=== PATIENT | female | born 1950 | race Caucasian/White ===

== ENCOUNTER → 2016-05-18 | Day surgery (SDC) | payer MEDICARE, MEDICAID ==
[2016-05-10 12:13] VITALS: BMI 29.9
[~2016-05-18] MED LIST: BSS 500 ml-Vancomycin 10 mg-Phenylephrine 1 mg Irrigation IR ONE; CHONDROITIN SULFATE 0.5 ML/PFS INTRAOC ONE; DEXAMETHASONE 4 MG/ML VIAL IV PRN; DIAZEPAM 5 MG TAB PO PRN; FENTANYL 100 MCG/2 ML VIAL IV PRN; FENTANYL 100 MCG/2 ML VIAL ONE; HYDROCODONE 5 MG/ACETAMIN 325 MG TAB PO PRN; Hyaluronate Sodium (Provisc) 5.5 mg/0.55 ml syringe INTRAOC ONE; KETOROLAC TROMETH 30 MG/ML VIAL IV PRN; LABETALOL 20 MG/4 ML SYRINGE IV PRN; LR 1,000 ML IV ONE; LR 1,000 ML IV SCH; MIDAZOLAM 2 MG/2 ML VIAL ONE; NS 1,000 ML IV SCH; NS 250 ML IV SCH; ONDANSETRON HCL 4 MG/2 ML VIAL IV PRN; PHENYLEPHRINE 2.5% OPHTH SOLN 2 ML BOT OP EYE ONE; SCOPOLAMINE TRANSDERMAL PATCH TOP PRN; TETRACAINE 0.5% 2 ML OPHTH SOLN OP EYE ONE; TETRACAINE 0.5% 2 ML OPHTH SOLN OP EYE PRN; TROPICAMIDE 1% OPHTH SOLN 2 ML BOTTLE OP EYE ONE; Vancomycin 10 MG, Phenylephrine 1,000 MCG in Balanced Salt Solution 500 ML IO ONE; hydrALAZINE 20 MG/ML VIAL IV PRN
[2016-05-18 08:27] VITALS: TEMP 97.6
--- NOTE | 2016-05-18 08:54 | SC.ANESEVA ---
Anesthesia Eval & Plan ([facility]) - Providers Stated Procedure: right eye cataract surgery Surgeon:: Kristine Lewis - Medications/Allergies Allergies: Allergies No Known Allergies Allergy (Verified 05/18/16 08:25) Home Medications: Home Medication List Alirocumab [Praluent Pen] SQ 05/10/16 [History] Allopurinol 100 mg PO DAILY 05/10/16 [History] Alprazolam PO PRN 05/10/16 [History] Ascorbate Calcium [Vitamin C] PO DAILY 05/10/16 [History] Aspirin 81 mg PO DAILY 05/10/16 [History] Cetirizine HCl [Zyrtec] 10 mg PO 05/10/16 [History] Diclofenac Sodium [Voltaren 1% Topical Gel] TOP 05/10/16 [History] Ezetimibe [Zetia] 10 mg PO DAILY 05/10/16 [History] Fluticasone Propionate [Flovent Diskus 50 mcg] DAILY 05/10/16 [History] Lactase [Lactose Fast Acting Relief] 1 tbsp PO BID PRN 05/10/16 [History] Lisinopril/Hydrochlorothiazide [Lisinopril-Hctz 20-25 mg Tab] PO DAILY [History] Metformin HCl [Metformin HCl ER] 750 mg PO TID 05/10/16 [History] Omeprazole [Prilosec] 20 mg PO 05/10/16 [History] Trimethoprim 100 mg PO DAILY 05/10/16 [History] Current Medication List: Reviewed - Focused Physical Exam NPO since: after Midnight Mallampati: Class II Neck: Full Range of Motion Dental: Normal - no significant findings Cardiovascular/Chest: Normal Respiratory: Lungs clear Any problems with anesthesia, including nausea and vomiting?: Yes (NAUSEA, VOMITING,HYPOTENSION,USUALLY GETS INJECTION PRIOR, DIFFICULT TO AWAK) Prone to Motion Sickness: No Other: Diagnoses COMBINED FORMS OF AGE-RELATED CATARACT, RIGHT EYE (05/18/16) Allergies Allergy/AdvReac Type Severity Reaction Status Date / Time No Known Allergies Allergy Verified 05/18/16 08:25 Home Medications Medication Instructions Recorded Last Taken Type Alirocumab [Praluent Pen] SQ 05/10/16 Unknown History Allopurinol 100 mg PO DAILY 05/10/16 Unknown History Alprazolam PO PRN 05/10/16 05/18/16 History Ascorbate Calcium [Vitamin C] PO DAILY 05/10/16 Unknown History Aspirin 81 mg PO DAILY 05/10/16 Unknown History Cetirizine HCl [Zyrtec] 10 mg PO 05/10/16 Unknown History Diclofenac Sodium [Voltaren 1% TOP 05/10/16 Unknown History Topical Gel] Ezetimibe [Zetia] 10 mg PO DAILY 05/10/16 Unknown History Fluticasone Propionate [Flovent DAILY 05/10/16 Unknown History Diskus 50 mcg] Lactase [Lactose Fast Acting 1 tbsp PO BID PRN 05/10/16 Unknown History Relief] Lisinopril/Hydrochlorothiazide PO DAILY 05/10/16 Unknown History [Lisinopril-Hctz 20-25 mg Tab] Metformin HCl [Metformin HCl ER] 750 mg PO TID 05/10/16 Unknown History Omeprazole [Prilosec] 20 mg PO 05/10/16 05/18/16 History Trimethoprim 100 mg PO DAILY 05/10/16 Unknown History Height and Weight Patient's height 5 ft Patient's weight 69.55 kg Weight (Calculated Kilograms) 69.550 BMI 29.9 Vital Signs Temperature 97.6 F 05/18/16 08:20 Pulse Rate 62 05/18/16 08:20 Respiratory Rate 16 05/18/16 08:20 Blood Pressure 140/96 05/18/16 08:20 Pulse Oxygen Saturation 97 05/18/16 08:20 - Anesthetic Plan Anesthesia Type: MAC ASA Class: 3 - Focused Review of Systems Cardiac History: Yes: Hx Hypertension, Hx Cardiac Disorders, Hx Abnormal Cholesterol/Hyperlipidemia (DYSLIPIDEMIA) HEENT: Yes: Other HEENT Problems Gastrointestinal: Yes: Hx Gastroesophageal Reflux Disease, Hx Gastrointestinal Disorders, Hx Colonoscopy Neurological/Musculoskeletal: Yes: Hx Neurological Disorders Endocrine: Yes: Hx Non-Insulin Dependent Diabetes Smoking Status: Never smoker Surgical History: Yes: Bladder Tact, Knee (ARTHROSCOPIC RIGHT KNEE) Other Surgical History: REMOVAL OF BLADDER SLING LEFT LUMPECTOMY
--- NOTE | 2016-05-18 09:32 | HIMOPRPT ---
DATE OF PROCEDURE: 05/18/16 PREOPERATIVE DIAGNOSIS: Cataract Right eye. POSTOPERATIVE DIAGNOSIS: Cataract Right eye. PROCEDURE: Cataract extraction by phacoemulsification of the Right eye SURGEON: Kristine Lewis MD. ANESTHESIA: IV Sedation/Topical. COMPLICATIONS: None. PRE-OPERATIVE EVALUATION: The patient has been examined and deemed medically stable for cataract extraction with no apparent need for inpatient observation; outpatient setting is appropriate. Patient appears to be oriented to time, place and person. PROCEDURE IN DETAIL: The correct eye confirmed by patient, doctor, staff and paperwork. The operative eye was then marked by the doctor in the preoperative area. Eye drops were instilled into the operative eye to dilate the pupil. The patient was transported to the operating room and was placed in the supine position. A time out was performed before the beginning of the procedure. The operative eye was prepped and draped in the usual sterile fashion for ophthalmic surgery, taking care to isolate the lashes from the surgical field. Topical anesthetic drops were instilled into the operative eye. A lid speculum was placed. Betadine 5% was instilled in the operative eye for antiseptic. Microscope was brought into place for use throughout the case. The eye was inspected. A paracentesis incision was created with a side port knife. The temporal limbal corneal incision was performed with a mayra blade. Viscoelastic was injected into the anterior chamber. Capsule forceps were used to create a capsulorhexis. Hydrodissection was performed with BSS. The nucleus was removed by phacoemulsification. Phaco time is noted below. The remaining cortical material was removed by I&A. The capsular bag was noted to be intact and distended with viscoelastic. The Intraocular lens was placed into the intact bag and centered without difficulty. The remaining viscoelastic was removed by I&A. Betadine 5% drops were placed to inspect wound and for antisepsis. Inspection revealed watertight wounds. The lid speculum was removed. Postoperative medications were instilled into the eye and a shield secured over the operative eye. IOL Type [id number] SN [id number] IOL Power 25.0 CDE 4.81 Discharge Summary: There were no complications and the patient was taken to the postoperative area in good condition. Postoperative instructions and outpatient follow up time were given.
[2016-05-18 09:48] VITALS: BP 131/75; PULSE 58
--- NOTE | 2016-05-18 10:59 | SC.ANESPOS ---
Post-Anesthesia Note LOC: Fully Awake Post-Anesthesia Assessment: Awake, Returned to Baseline, Hemodynamically Stable , Pain Control Adequate Phase I & II Recovery Complete: Yes Apparent Anesthesia Complication: No : N - Vital Signs Blood Pressure: 131/75 Pulse: 58 Resp Rate: 18 O2 Sat: 95 Temp: 97.6 F
== END ==
LOC: CPSC 07:37
PROVIDERS: ATTEND Ophthalmology
PROC: 08RJ3JZ Replacement of Right Lens with Synthetic Substitute, Percutaneous Approach (ICD-10-PCS; principal; 2016-05-18 09:30)
DX: H25.811 Combined forms of age-related cataract, right eye (principal); E11.9 Type 2 diabetes mellitus without complications; Z79.84 Long term (current) use of oral hypoglycemic drugs; Z79.899 Other long term (current) drug therapy; Z79.82 Long term (current) use of aspirin; I10 Essential (primary) hypertension; G62.9 Polyneuropathy, unspecified; E78.5 Hyperlipidemia, unspecified; K21.9 Gastro-esophageal reflux disease without esophagitis
CPT/HCPCS: 66984; 82962; A9270; V2632; J2250; J3010; J3490